=== PATIENT | male | born 1960 | race African-American/Black ===

== ENCOUNTER 2018-04-09 13:02 | Inpatient (IN) | payer MEDICARE, OTHER ==
[~2018-04-09] VITALS: Ht 185.4 cm; Wt 83.0 kg
--- NOTE | 2018-04-09 13:10 | NUR ---
PT BIB SELF C/O SOB X 1 WEEK , CP RECENTLY SIGN OUT FROM SKILLED FACILITY NITIN STRANGE, PT IS AAOX3, NOT IN RESPIRATORY DISTRESS, V/S STABLE, KEPT RESTED AND COMFORTABLE, WILL CONTINUE TO MONITOR.
--- NOTE | 2018-04-09 13:10 | NUR ---
PT LABS DRAWNED AND SENT TO LAB. AWAITING RESULTS.
[2018-04-09 13:44] LABS: BASOPHILS # (AUTO) 0.1 /CMM (0.0-0.2); HEMATOCRIT 45 % (39-51); HEMOGLOBIN 14.5 g/dL (13.5-17.5); LYMPHOCYTES # (AUTO) 2.7 /CMM (0.8-4.8); LYMPHOCYTES % (AUTO) 33.4 % (20.0-44.0); MEAN CORPUSCULAR HGB CONC 33 g/dl (31.0-36.0); MEAN CORPUSCULAR VOLUME 88 fL (80-96); MONOCYTES # (AUTO) 0.5 /CMM (0.1-1.30); MONOCYTES % (AUTO) 6.1 % (2.0-12.0); NEUTROPHILS # (AUTO) 4.8 /CMM (1.8-8.9); NEUTROPHILS % (AUTO) 58.5 % (43.0-81.0); PLATELET COUNT (AUTO) 308 /CMM (150-450); RED BLOOD CELL COUNT(AUTO) 5.08 MIL/uL (4.5-6.0); WHITE BLOOD COUNT (AUTO) 8.2 K/uL (4.3-11.0)
--- NOTE | 2018-04-09 13:45 | NUR ---
RADIOLOGY AT BEDSIDE FOR XRAY.
[2018-04-09 13:54] LABS: CALCIUM, SERUM 8.9 mg/dL (8.5-10.1); CARBON DIOXIDE 25 mmol/L (21-32); CHLORIDE 102 mmol/L (98-107); CREATININE 0.8 mg/dL (0.6-1.3); GLUCOSE 66 mg/dL (74-106); POTASSIUM 3.6 mmol/L (3.5-5.1); SODIUM SERUM 139 mmol/L (136-145); UREA NITROGEN, BLOOD 13 mg/dL (7-18)
[2018-04-09 14:09] LABS: B-TYPE NATRIURETIC PEPTIDE 279 PG/ML (0-125)
--- NOTE | 2018-04-09 14:43 | NUR ---
Called nursing sales department supervisor and requested a tele bed for this pt.
[2018-04-09] MEDS ORDERED: DIVA-78 PO (14:49)
[2018-04-09] MEDS ORDERED: QUET200T PO (14:49)
[2018-04-09] MEDS ORDERED: FAMO20TA8 PO (14:49)
[2018-04-09] MEDS ORDERED: ACET-868 PO (14:49)
[2018-04-09] MEDS ORDERED: PHEN100C4 PO ×2 (14:49→19:58)
[2018-04-09] MEDS ORDERED: LOSA50TA39 PO (14:49)
[2018-04-09] MEDS ORDERED: ALBU18HF2 IH (14:49)
[2018-04-09] MEDS ORDERED: ZOLP5TAB8 PO (14:49)
[2018-04-09] MEDS ORDERED: LORA1TAB PO (14:49)
[2018-04-09] MEDS ORDERED: NICO-676 TD (14:49)
[2018-04-09] MEDS ORDERED: ASPI-1169 PO (14:49)
[2018-04-09] MEDS ORDERED: BISA5TAB10 PO (14:49)
[2018-04-09] MEDS ORDERED: METF-440 PO (14:49)
[2018-04-09] MEDS ORDERED: DOCU-141 PO (14:49)
[2018-04-09 15:14] LABS: ALANINE AMINOTRANSFERASE 19 U/L (12-78); ALBUMIN 3.8 g/dL (3.4-5.0); ALKALINE PHOSPHATASE 112 U/L (46-116); ASPARTATE AMINOTRANSFERASE 19 U/L (15-37); BILIRUBIN,TOTAL 0.1 mg/dL (0.2-1.0); TOTAL PROTEIN, SERUM 8.4 g/dL (6.4-8.2)
--- NOTE | 2018-04-09 15:18 | NUR ---
URINE COLLECTED AND SENT TO LAB.
[2018-04-09 15:19] LABS: ALCOHOL, BLOOD 14 mg/dL (0-0); SALICYLATE 3.1 mg/dL (2.8-20.0)
[2018-04-09 15:26] LABS: APPEARANCE,URINE Clear (CLEAR); BILIRUBIN,URINE Negative (NEGATIVE); BLOOD, URINE Moderate Ery/uL (NEGATIVE); COLOR,URINE Yellow (YELLOW); KETONES,URINE 40 (NEGATIVE); LEUKOCYTE ESTERASE ,URINE Trace (NEGATIVE); NITRITE, URINE Negative (NEGATIVE); PROTEIN,URINE 30 mg/dl (NEGATIVE); UGLUCOSE Negative (NEGATIVE); UROBILINOGEN,URINE 0.2 EU/dL (0.2)
[2018-04-09 15:29] LABS: ACETAMINOPHEN < 2 ug/ml (10-30)
[2018-04-09 15:35] LABS: BACTERIA,URINE Few /HPF (None Seen); SQUAMOUS EPITHELIAL CELL,UR Few /HPF (None Seen)
--- NOTE | 2018-04-09 15:38 | NUR ---
Berto davies in [facility] - 04/09/18 at 1539 by SANDEEP Pt is assigned to [facility]#: [id number], DX: CHF, and accepting MD: Dr Ledesma
--- NOTE | 2018-04-09 15:39 | NUR ---
Pt is assigned to [facility]#: [id number], DX: CHF, and accepting MD: Dr Ledesma
--- NOTE | 2018-04-09 16:01 | NUR ---
REPORT GIVEN TO DEREK AUGUSTIN FOR GRACY.
--- NOTE | 2018-04-09 18:50 | NUR ---
MARKET RESEARCH EXECUTIVE NOTES RECEIVED FROM E.R. STAFF VIA [facility], ASSISTED TO BED, MADE COMFORTABLE, PT IS AWAKE, ALERT AND VERBALLY RESPONSIVE, WITH SITTER, NO COMPLAINT OF PAIN, NOT IN DISTRESS, ROOM SET UP ORIENTATION PROVIDED, VERBALIZED UNDERSTANDING, ASSISTED WITH MEALS, NEEDS ATTENDED, WILL ENDORSE TO ROAD CREW MEMBER RN FOR CONTINUITY OF CARE.
[2018-04-09 19:01] VITALS: BP 155/93
[2018-04-09] MEDS ORDERED: QUET300T72 PO (19:58)
[2018-04-09] MEDS ORDERED: DIVA500T4 PO (19:58)
[2018-04-09] MEDS ORDERED: HYDROCODONE/APAP 5/325MG 1 EACH TABLET PO PRN (23:00)
[2018-04-09] MEDS ORDERED: Z GUARD REMEDY 2 OZ OINT TP PRN (23:00)
[2018-04-09] MEDS ORDERED: BISACODYL (5 MG) 5 MG TABLET.DR PO PRN (23:00)
[2018-04-09] MEDS ORDERED: MAGNESIUM HYDROXIDE 30 ML UDC PO PRN (23:00)
[2018-04-09] MEDS ORDERED: ACETAMINOPHEN 325 MG TABLET PO PRN ×2 (23:00)
[2018-04-09] MEDS ORDERED: MAG HYDROX/AL HYDROX/SIMETH 30 ML UDC PO PRN (23:00)
[2018-04-09] MEDS ORDERED: ZOLPIDEM TARTRATE 5 MG TABLET PO PRN ×2 (23:00)
[2018-04-09] MEDS ORDERED: LORAZEPAM 1 MG TABLET PO PRN (23:00)
[2018-04-09] MEDS ORDERED: ONDANSETRON HCL/PF 4 MG/2 ML VIAL IVP PRN (23:00)
[2018-04-10] VITALS: BP 107/65
[2018-04-10 04:00] VITALS: BP 177/65
[2018-04-10] MEDS ORDERED: ALBUTEROL FS 2.5 MG/3 ML VIAL.NEB NEB PRN (07:35)
[2018-04-10 08:00] VITALS: BP 154/70
--- NOTE | 2018-04-10 08:00 | NUR ---
RN NOTE RECEIVED PATIENT, AWAKE, A/O X2, WITH EPISODE OF CONFUSION. PATIENT WITH FLIGHT OF IDEAS, ABLE TO MAKE NEEDS KNOWN ON ROOM AIR, BREATHING UNLABORED, NO SIGN OF DISTRESS NOTED, DENIES ANY CHEST PAIN OR ANY KIND OF PAIN. ON TELEMONITOR: SINUS RHYTHM HR AT 83 AT THIS TIME, SKIN WARM TO TOUCH, IV LINE TO LAC G [address] AND INTACT, PATENT ON FLUSHING: SL, PATIENT AMBULATORY, SITTER AT BEDSIDE, CALL LIGHT PLACE WITHIN EASY REACH, SAFETY MEASURES OBSERVED AND MAINTAINED, BED IN LOWEST AND LOCKED POSITION , WILL CONTINUE TO MONITOR PATIENT CLOSELY
[2018-04-10] MEDS ORDERED: DIVALPROEX SODIUM 500 MG TABLET.DR PO SCH (09:00)
[2018-04-10] MEDS: FAMOTIDINE (20 MG) 20 MG TABLET PO SCH (09:06)
[2018-04-10] MEDS: ASPIRIN 81 MG TAB.CHEW PO SCH (09:06)
[2018-04-10] MEDS: DOCUSATE SODIUM 100 MG CAPSULE PO SCH ×2 (09:06→17:25)
[2018-04-10] MEDS: DIVALPROEX SODIUM 500 MG TABLET.DR PO SCH ×4 (09:07→22:35)
[2018-04-10] MEDS: LOSARTAN POTASSIUM 50 MG TABLET PO SCH (09:07)
[2018-04-10] MEDS: METFORMIN 500 MG TABLET PO SCH ×2 (09:07→17:25)
[2018-04-10] MEDS: NICOTINE PATCH (14MG) 14 MG PATCH.TD24 TD SCH (09:07)
[2018-04-10 12:00] VITALS: BP 125/66
[2018-04-10 16:00] VITALS: BP 134/79
[2018-04-10 20:00] VITALS: BP 133/59
--- NOTE | 2018-04-10 20:43 | NUR ---
RN NOTES ENDORSED FOR CONTINUITY OF CARE. NO ACUTE CHANGES WITHIN THE SHIFT. ALL NURSING NEEDS ATTENDED AND MET. SAFETY MEASURES IN PLACE AT ALL TIMES. BED LOW AND LOCKED POSITION. CALL LIGHT WITHIN REACH AT ALL TIME
[2018-04-10] MEDS ORDERED: Medication Not On Formulary EA (Quetiapine Fumarate (Seroquel) 400 MG) PO SCH (22:00)
[2018-04-10] MEDS ORDERED: QUETIAPINE FUMARATE 100 MG TABLET PO SCH (22:00)
[2018-04-10] MEDS ORDERED: PHENYTOIN EXTENDED RELEASE 100 MG CAPSULE PO SCH (22:00)
[2018-04-10] MEDS: PHENYTOIN EXTENDED RELEASE 100 MG CAPSULE PO SCH (22:35)
[2018-04-10] MEDS: QUETIAPINE FUMARATE 100 MG TABLET PO SCH (22:35)
--- NOTE | 2018-04-11 01:00 | NUR ---
RN note patient refused vitals signs and cardiac monitoring. MD notified and orders received to put in stand-by. Will continue encouraging the patient and endorse to AM shift
[2018-04-11 08:00] VITALS: BP 110/66
[2018-04-11] MEDS: DIVALPROEX SODIUM 500 MG TABLET.DR PO SCH ×4 (08:32→21:27)
[2018-04-11] MEDS: NICOTINE PATCH (14MG) 14 MG PATCH.TD24 TD SCH ×2 (08:32→08:35)
[2018-04-11] MEDS: METFORMIN 500 MG TABLET PO SCH ×2 (08:32→18:09)
[2018-04-11] MEDS: LOSARTAN POTASSIUM 50 MG TABLET PO SCH (08:32)
[2018-04-11] MEDS: DOCUSATE SODIUM 100 MG CAPSULE PO SCH ×2 (08:32→18:09)
[2018-04-11] MEDS: ASPIRIN 81 MG TAB.CHEW PO SCH (08:33)
[2018-04-11] MEDS: FAMOTIDINE (20 MG) 20 MG TABLET PO SCH (08:33)
--- NOTE | 2018-04-11 10:33 | NUR ---
Educated patient on refusal of IV site and medication for potassium replacement. Patient refused regardless. Education on urine sample. Provided specimen container.
--- NOTE | 2018-04-11 11:27 | NUR ---
Social service consult requested by Dr. Ledesma for homelessness. Pt. is a 57 year old -[place] male who was admitted to [facility] for CHF and suicidal ideations. SW met with pt. bedside. Pt. has a sitter bedside. Pt. is alert and oriented x 3. Pt. appears disheveled. Pt. has his belongings bedside. Pt. is cooperative with SW. Pt's mood is congruent. Pt. states he left AMA from [facility] in [place]. Pt. states he has been homeless but not for too long. Pt states he has a psychiatric diagnosis of Bipolar, Depression and Anxiety. Pt's current medications include Depakote, Seroquel and Dilantin. Pt. is currently denying suicidal and homicidal ideations and visual/auditory hallucinations at this time. Pt. states he is interested in going to an Independent living and can afford to pay $700/ month. Pt. receives approximately $1350 per month of SSDI. DEMETRIO consulted with family caseworker Susannah regarding pt,.wanting to go to an independent living. SW and family caseworker to refer pt. to an independent living.
[2018-04-11 12:00] VITALS: BP 97/70
[2018-04-11 12:29] VITALS: BP 97/70
[2018-04-11 16:00] VITALS: BP 128/78
[2018-04-11 16:04] VITALS: BP 128/78
--- NOTE | 2018-04-11 18:32 | NUR ---
Call to consulting MD Del Valle. Left message on voicemail.
--- NOTE | 2018-04-11 20:00 | NUR ---
ROLL HAND NOTE RECEIVED PT IN BED SITTING UP. A/O X 2, NO SOB, NO DISTRESS OR DISCOMFORT NOTED. DENIES PAIN. PT REFUSED VS. AND ALSO KEPT ON REFUSING TELE MONITOR SINCE YESTERDAY, AWARE. TRIED TO REMIND PT IMPORTANCE OF HEART MONITORING, BUT PT STATES "I AM OK WITHOUT IT". SIDE RAILS UP X 2 AND CALL LIGHT WITHIN REACH. SITTER AT BED SIDE.
[2018-04-11] MEDS: PHENYTOIN EXTENDED RELEASE 100 MG CAPSULE PO SCH (21:27)
[2018-04-11] MEDS: QUETIAPINE FUMARATE 100 MG TABLET PO SCH (21:27)
--- NOTE | 2018-04-11 21:33 | NUR ---
MESS ATTENDANT CREW NOTE PT TOOK THE NIGHT TIME MEDS. BUT NOTED PT PULLED THE SL OUT FROM LAC, NO BLEEDING NOTED. SECURED THE SITE WITH 2X 2 GAUZE. PT REFUSED TO BE INSERTED NEW LINE. WILL TRY LATER.
--- NOTE | 2018-04-12 06:39 | NUR ---
MILITARY PILOT NOTE PT IN BED AWAKE, NO DISTRESS OR DISCOMFORT NOTED. DENIES PAIN. PT REMAIN REFUSING TO PUT ON TELE BOX. ALSO REFUSED IV INSERTION, MD AWARE. SIDE RAILS UP X 3 AND CALL LIGHT WITHIN REACH. WILL ENDORSE TO DAY SHIFT NURSE FOR CONTINUE TO CARE.
[2018-04-12] MEDS: FAMOTIDINE (20 MG) 20 MG TABLET PO SCH (07:30)
--- NOTE | 2018-04-12 07:30 | NUR ---
RN NOTES RECEIVED PATIENT, AWAKE, A/O X2, WITH EPISODE OF CONFUSION. PATIENT WITH FLIGHT OF IDEAS, ABLE TO MAKE NEEDS KNOWN ON ROOM AIR, BREATHING UNLABORED, NO SIGN OF DISTRESS NOTED, DENIES ANY CHEST PAIN OR ANY KIND OF PAIN. PATIENT BEING RESISTIVE- REFUSED VITAL SIGNS TO BE TAKEN AND MONITOR TO BE IN PLACE. PATIENT AMBULATORY, SITTER AT BEDSIDE, CALL LIGHT PLACE WITHIN EASY REACH, SAFETY MEASURES OBSERVED AND MAINTAINED, BED IN LOWEST AND LOCKED POSITION , WILL CONTINUE TO MONITOR PATIENT CLOSELY
[2018-04-12 08:00] VITALS: BP 110/66
--- NOTE | 2018-04-12 08:00 | NUR ---
RN NOTES PATIENT REFUSED TO EAT FOOD SERVE FOR BREAKFAST AND WAS ASKING FOR 2 SAUSAGE AND 3 HARD BOILED EGGS WHICH ARE NOT ALLOWED FOR THE ORDERED DIET. EXPLAINED SITUATION TO PATIENT WHO STILL REFUSES TO EAT FOOD. WILL CLARIFY WITH MD ON ROUND.
[2018-04-12] MEDS: METFORMIN 500 MG TABLET PO SCH ×2 (09:00→16:55)
[2018-04-12] MEDS: DIVALPROEX SODIUM 500 MG TABLET.DR PO SCH ×4 (09:00→20:50)
[2018-04-12] MEDS: NICOTINE PATCH (14MG) 14 MG PATCH.TD24 TD SCH (09:00)
[2018-04-12] MEDS: ASPIRIN 81 MG TAB.CHEW PO SCH (09:00)
[2018-04-12] MEDS: DOCUSATE SODIUM 100 MG CAPSULE PO SCH ×4 (09:00→17:00)
[2018-04-12] MEDS: LOSARTAN POTASSIUM 50 MG TABLET PO SCH (09:00)
--- NOTE | 2018-04-12 09:00 | NUR ---
RN NOTES PATIENT REFUSE TO TAKE MEDICATIONS. "I WILL TAKE MY MEDICATION AFTER I EAT" INFORMED PATIENT THAT HE REFUSED THE FOOD SERVE TO HIM FOR BREAKFAST BUT CLAIMED THAT HE DID NOT. PATIENT WAS THEN OFFERED THE SAME TRAY BUT VERBALIZED " I WILL TAKE MY MEDICATIONS AFTER I EAT MY FOOD FOR LUNCH". RISK AND BENEFITS EXPLAINED TO THE PATIENT WHO WAS ON PASSIVELY LISTENING.
--- NOTE | 2018-04-12 09:30 | NUR ---
RN NOTES RE OFFERED MEDICATION. STILL REFUSES
[2018-04-12 12:00] VITALS: BP 97/70
[2018-04-12 16:00] VITALS: BP 128/78
[2018-04-12 20:00] VITALS: BP 107/69
[2018-04-12] MEDS: QUETIAPINE FUMARATE 100 MG TABLET PO SCH (20:50)
[2018-04-12] MEDS: PHENYTOIN EXTENDED RELEASE 100 MG CAPSULE PO SCH (20:51)
[2018-04-13 04:00] VITALS: BP_SYST 118; BP_SYST 156; BP_DIAS 74; BP_DIAS 78
--- NOTE | 2018-04-13 05:50 | NUR ---
pt alert, oriented, denies any pain or discomfort, sleeping well overnight, with constant observer.vss,afebrile, remians in bed, uses urinal , no bm, vss,afebrile, no significant changes overnight, will continue to monitor.
[2018-04-13] MEDS: FAMOTIDINE (20 MG) 20 MG TABLET PO SCH (07:30)
--- NOTE | 2018-04-13 07:30 | NUR ---
RN OPENING NOTES PT RECEIVED IN BED AT LOWEST AND LOCKED POSITION WITH SIDE RAILS UP X2, A/O X4, BREATHING EVEN AND UNLABORED ON RA, NO S/S OF PAIN OR DISTRESS NOTED, IV PATENT AND INTACT, SAFETY PRECAUTIONS IN PLACE, CALL LIGHT WITHIN REACH, WILL MONITOR ACCORDINGLY
--- NOTE | 2018-04-13 08:18 | NUR ---
RN NOTES PATIENT REFUSED TO EAT FOOD THAT WAS SERVED FOR BREAKFAST AND WAS ASKING FOR SAUSAGE AND HARD BOILED EGGS WHICH HE IS NOT ALLOWED DUE TO HIS CARDIAC DIET. EXPLAINED SITUATION TO PATIENT WHO STILL REFUSES TO EAT FOOD. HE REFUSED AM MEDS WELL BECAUSE OF THIS.
[2018-04-13] MEDS: DOCUSATE SODIUM 100 MG CAPSULE PO SCH ×2 (08:57→16:23)
[2018-04-13] MEDS: ASPIRIN 81 MG TAB.CHEW PO SCH (08:57)
[2018-04-13] MEDS: LOSARTAN POTASSIUM 50 MG TABLET PO SCH (08:57)
[2018-04-13] MEDS: METFORMIN 500 MG TABLET PO SCH ×2 (08:58→16:23)
[2018-04-13] MEDS: NICOTINE PATCH (14MG) 14 MG PATCH.TD24 TD SCH (08:58)
[2018-04-13] MEDS: DIVALPROEX SODIUM 500 MG TABLET.DR PO SCH ×3 (08:58→16:23)
[2018-04-13 09:00] VITALS: BP 108/70
[2018-04-13 12:59] VITALS: BP 96/68
[2018-04-13 17:18] VITALS: BP 96/68
--- NOTE | 2018-04-13 18:21 | NUR ---
DISCHARGE NOTES PT IS BEING D/C AT THIS TIME [facility] AT [address] [place] [address] IN MEDICALLY STABLE CONDITION VIA TAXI. IV AND ID BAND REMOVED. D/C PAPERWORK DISCCUSSED AND SIGNED BY PT. BELONGING LIST SIGNED BY PT, ALL BELONGINGS WERE TAKEN WELL. SKIN WAS DRY AND INTACT WITH NO WOUNDS NOTED. ALL NEEDS WERE ATTENDED TO DURING THEIR STAY. REPORT GIVEN TO DEREK NG. ALL NEEDS WERE ATTENDED TO, [facility] PT OUT, WITH ETA OF 30 MIN
== END 2018-04-13 18:25 | disposition home or self-care (01) | DRG 101 ==
LOC: ER 13:05 → TELE1 15:44 → MEDSG1 04-12 15:40
PROVIDERS: ADMIT Internal Medicine; ATTEND Nurse Practitioner Acute Care
DX: G40.909 Epilepsy, unspecified, not intractable, without status epilepticus (principal); F23 Brief psychotic disorder; R45.851 Suicidal ideations; I25.10 Atherosclerotic heart disease of native coronary artery without angina pectoris; E78.5 Hyperlipidemia, unspecified; F43.10 Post-traumatic stress disorder, unspecified; F17.210 Nicotine dependence, cigarettes, uncomplicated; I11.0 Hypertensive heart disease with heart failure; I50.9 Heart failure, unspecified; J44.9 Chronic obstructive pulmonary disease, unspecified; Z59.0 Homelessness; Z79.84 Long term (current) use of oral hypoglycemic drugs; E11.9 Type 2 diabetes mellitus without complications; F25.0 Schizoaffective disorder, bipolar type; Z91.19 Patient's noncompliance with other medical treatment and regimen; J06.9 Acute upper respiratory infection, unspecified
CPT/HCPCS: 36415; 71045-TC; 80048-TC; 80076-TC; 80305; 81000-TC; 83880; 84484-TC; 85025-TC; 85730-TC; 87081-TC; 93307-TC; G0378; G0480

== ENCOUNTER 2018-11-03 00:24 | Emergency (ER) | payer MEDICARE, OTHER ==
[~2018-11-03] VITALS: Ht 190.5 cm; Wt 88.9 kg
[~2018-11-03 00:24] MED LIST: ACET-868 PO; ALBU18HF2 IH; ASPI-1169 PO; BISA5TAB10 PO; DIVA-78 PO; DIVA500T4 PO; DOCU-141 PO; FAMO20TA8 PO; LORA1TAB PO; LOSA50TA39 PO; METF-440 PO; NICO-676 TD; PHEN100C4 PO; QUET200T PO; QUET300T72 PO; ZOLP5TAB8 PO
--- NOTE | 2018-11-03 01:20 | NUR ---
BIBSELF C/O SUICIDE/HOMICIDAL IDEATION AND AUDITORY HALLUCINATIONS. PT DENIES PLAN AT THIS TIME. PT APPEARS PARANOID. VITAL SIGNS STABLE. ABLE TO AMBULATE WITH STEADY GAIT. PLACED IN GOWN, SUICIDE PRECAUTIONS INITIATED. SITTER AT BEDSIDE. WILL CONTINUE TO MONITOR
--- NOTE | 2018-11-03 01:40 | NUR ---
MD AT BEDSIDE FOR EVALUATION
[2018-11-03 01:53] LABS: APPEARANCE,URINE Clear (CLEAR); BILIRUBIN,URINE Negative (NEGATIVE); BLOOD, URINE Trace-lysed Ery/uL (NEGATIVE); COLOR,URINE Yellow (YELLOW); KETONES,URINE Trace (NEGATIVE); LEUKOCYTE ESTERASE ,URINE Small (NEGATIVE); NITRITE, URINE Negative (NEGATIVE); PROTEIN,URINE Negative (NEGATIVE); UGLUCOSE Negative (NEGATIVE); UROBILINOGEN,URINE 0.2 EU/dL (0.2)
--- NOTE | 2018-11-03 01:54 | NUR ---
CORPORATE TECHNICAL RECRUITER AT BEDSIDE FOR EVALUATION
[2018-11-03 01:57] LABS: BASOPHILS # (AUTO) 0.1 /CMM (0.0-0.2); BASOPHILS % (AUTO) 0.7 % (0.0-2.0); EOSINOPHILS % (AUTO) 0.5 % (0.0-6.0); HEMATOCRIT 43 % (39-51); HEMOGLOBIN 14.1 g/dL (13.5-17.5); LYMPHOCYTES # (AUTO) 1.5 /CMM (0.8-4.8); LYMPHOCYTES % (AUTO) 17.5 % (20.0-44.0); MEAN CORPUSCULAR HGB CONC 33 g/dl (31.0-36.0); MEAN CORPUSCULAR VOLUME 86 fL (80-96); MONOCYTES # (AUTO) 0.5 /CMM (0.1-1.30); MONOCYTES % (AUTO) 6.2 % (2.0-12.0); NEUTROPHILS # (AUTO) 6.4 /CMM (1.8-8.9); NEUTROPHILS % (AUTO) 75.1 % (43.0-81.0); PLATELET COUNT (AUTO) 315 /CMM (150-450); RED BLOOD CELL COUNT(AUTO) 4.99 MIL/uL (4.5-6.0); WHITE BLOOD COUNT (AUTO) 8.5 K/uL (4.3-11.0)
[2018-11-03 02:12] LABS: BACTERIA,URINE Few /HPF (None Seen); SQUAMOUS EPITHELIAL CELL,UR Rare /HPF (None Seen); WBC,URINE 21-50 /HPF (0-3)
[2018-11-03 02:12] LABS: CALCIUM, SERUM 9.1 mg/dL (8.5-10.1); CREATININE 0.9 mg/dL (0.6-1.3); POTASSIUM 3.3 mmol/L (3.5-5.1)
[2018-11-03 02:16] LABS: ALBUMIN 3.7 g/dL (3.4-5.0); BILIRUBIN,DIRECT 0.1 mg/dL (0.0-0.2); BILIRUBIN,TOTAL 0.1 mg/dL (0.2-1.0); SALICYLATE 5.4 mg/dL (2.8-20.0); TOTAL PROTEIN, SERUM 8.6 g/dL (6.4-8.2)
[2018-11-03 02:20] LABS: B-TYPE NATRIURETIC PEPTIDE 164 PG/ML (0-125)
[2018-11-03] MEDS ORDERED: SULFAMETH/TRIMETH 800/160 MG 1 UDTAB TABLET PO ONE (03:30)
[2018-11-03] MEDS ORDERED: POTASSIUM CHLORIDE 20 MEQ TAB.PRT.SR PO ONE ×2 (03:30→04:16)
--- NOTE | 2018-11-03 03:34 | NUR ---
PT RESTING COMFORTABLY IN BED. SITTER AT BEDSIDE. WILL CONTINUE TO MONITOR
[2018-11-03] MEDS ORDERED: SULFAMETH/TRIMETH 800/160 MG 1 UDTAB TABLET ONE (04:16)
--- NOTE | 2018-11-03 04:58 | NUR ---
ART,SKIN TANNER AT BEDSIDE FOR EVALUATION
--- NOTE | 2018-11-03 06:03 | NUR ---
PT AWAKE IN BED. APPEARS RESTLESS. HYPERTENSION NOTED. ER MD AWARE. SITTER AT BEDSIDE
[2018-11-03] MEDS ORDERED: CLONIDINE HCL 0.1 MG TABLET ONE ×2 (06:08→08:17)
[2018-11-03] MEDS ORDERED: LORAZEPAM 1 MG TABLET ONE ×2 (06:08→08:16)
[2018-11-03] MEDS ORDERED: CLONIDINE HCL 0.1 MG TABLET PO ONE ×2 (06:30→08:30)
[2018-11-03] MEDS ORDERED: LORAZEPAM 1 MG TABLET PO ONE ×2 (06:30→08:30)
--- NOTE | 2018-11-03 08:08 | NUR ---
BP 218/109, P 119, MADE MD AWARE.
--- NOTE | 2018-11-03 11:39 | NUR ---
Social service consult requested by ER Charge Nurse for suicidal ideation. Pt is a 58 year old male who was admitted to [facility] ER for suicidal ideation. SW met with pt at bedside. Pt was laying down in his bed. Pt looks disheveled. Pt is ambulatory and states that he is able to walk independently. Pt was agitated and presented with disorganized thoughts. Pt is oriented x 3. Pt states that he is currently homeless. PT states that he has lived in several different psychiatric and convalescent facilities but could not provide specific information. Pt states that he does not use alcohol or drugs, �except I did use last night because they entered through the ground and it went up my feet.� Pt unable to provide further specific information on a history of drug or alcohol use. Pt state that has a history of psychiatric diagnoses, including: paranoid schizophrenia, depression, homicidal and suicidal ideation, visual and auditory hallucinations. Patient presents as delusional stating, �I was banging my head because my shadow was turning blue and it was turning on me� my shadow is after me.� Pt states he is currently experiencing suicidal ideation. Pt was receptive to voluntarily admitting himself to [facility] at [id number] [place] [id number]; [phone]. DEMETRIO spoke with Staci, Legal Nurse Consultant, and she states that they have already received the clinicals packet for patient and they are waiting to receive information regarding pt�s last seizure episode. DEMETRIO informed ER Charge Nurse and information will be provided.
[2018-11-03] MEDS ORDERED: DIVALPROEX SODIUM 500 MG TABLET.DR PO ONE ×2 (12:30→13:13)
--- NOTE | 2018-11-03 13:45 | NUR ---
CALLED FOR BLS TRANSPORT TO [facility], 1500 ETA
[2018-11-03] MEDS ORDERED: METOPROLOL SUCCINATE 50 MG TAB.SR.24H PO SCH (14:00)
[2018-11-03] MEDS ORDERED: LABETALOL HCL IV 100MG VIAL IV ONE (14:00)
[2018-11-03] MEDS ORDERED: LABETALOL HCL IV 100MG VIAL ONE (14:08)
[2018-11-03] MEDS ORDERED: METOPROLOL TARTRATE 50 MG TABLET ONE (15:24)
[2018-11-03 15:30] VITALS: BP 137/94
--- NOTE | 2018-11-03 15:37 | NUR ---
REPORT GIVEN TO RICH DIE ASSEMBLER. Patient discharged [facility] in stable condition. Written and verbal after care instructions given. Patient verbalizes understanding of instruction. ALL BELONGINGS GIVEN TO PATIENT.
[2018-11-03] MEDS ORDERED: METOPROLOL TARTRATE 25 MG TABLET PO ONE (16:00)
== END 2018-11-03 15:40 ==
LOC: ER 00:35
DX: R45.851 Suicidal ideations (principal); E87.6 Hypokalemia; N39.0 Urinary tract infection, site not specified; F15.10 Other stimulant abuse, uncomplicated; I11.0 Hypertensive heart disease with heart failure; I50.9 Heart failure, unspecified; J44.9 Chronic obstructive pulmonary disease, unspecified; E11.9 Type 2 diabetes mellitus without complications; I25.10 Atherosclerotic heart disease of native coronary artery without angina pectoris; F31.9 Bipolar disorder, unspecified; F20.0 Paranoid schizophrenia; F14.10 Cocaine abuse, uncomplicated; F17.200 Nicotine dependence, unspecified, uncomplicated; F10.10 Alcohol abuse, uncomplicated; G40.909 Epilepsy, unspecified, not intractable, without status epilepticus; Z98.890 Other specified postprocedural states; Z59.0 Homelessness; Z79.82 Long term (current) use of aspirin; Z91.018 Allergy to other foods; Z88.9 Allergy status to unspecified drugs, medicaments and biological substances; Z88.8 Allergy status to other drugs, medicaments and biological substances; Z88.5 Allergy status to narcotic agent; Z91.048 Other nonmedicinal substance allergy status
CPT/HCPCS: 36415; 71045; 80048; 80076; 80164; 80185; 80305; 80329; 80307; 81001; 83880; 84484; 85025; 87086; 93005; 96374; 99285; G0480; J3490; 81000-TC

== ENCOUNTER 2019-02-18 00:29 | Emergency (ER) | payer MEDICARE, OTHER ==
[~2019-02-18] VITALS: Ht 188 cm; Wt 74.8 kg
[2019-02-18 02:37] VITALS: BP 149/84
--- NOTE | 2019-02-18 03:52 | NUR ---
Patient discharged to home in stable condition. Written and verbal after care instructions given. Patient verbalizes understanding of instruction. Pt ambulatory with a steady gait
== END 2019-02-18 03:53 | disposition home or self-care (01) ==
LOC: ER 00:32
DX: R05 Cough (principal); G40.909 Epilepsy, unspecified, not intractable, without status epilepticus; I10 Essential (primary) hypertension; E11.9 Type 2 diabetes mellitus without complications; F20.9 Schizophrenia, unspecified; F10.10 Alcohol abuse, uncomplicated; F17.200 Nicotine dependence, unspecified, uncomplicated; F14.10 Cocaine abuse, uncomplicated; Y90.9 Presence of alcohol in blood, level not specified; Z59.0 Homelessness; Z98.890 Other specified postprocedural states; Z79.899 Other long term (current) drug therapy; Z79.82 Long term (current) use of aspirin; Z88.5 Allergy status to narcotic agent; Z91.018 Allergy to other foods; Z88.4 Allergy status to anesthetic agent; Z88.8 Allergy status to other drugs, medicaments and biological substances; Z91.048 Other nonmedicinal substance allergy status
CPT/HCPCS: 71045-TC

== ENCOUNTER 2019-06-03 22:01 | Emergency (ER) | payer MEDICARE ==
[~2019-06-03] VITALS: Ht 188 cm; Wt 77.1 kg
--- NOTE | 2019-06-03 22:10 | NUR ---
BIBS. RAMBLING INCOHERENTLY. VERBALIZES SI & HI. NO SPECIFIC PLANS. JITTERY, PT TO BED 12, S/I PRECAUTION STARTED, BELONGINGS KEPT IN LOCKER FOR SAFETY, SITTER AT BEDSIDE. PENDING MD MONTERO
[2019-06-03 23:13] LABS: APPEARANCE,URINE Clear (CLEAR); BILIRUBIN,URINE SMALL (NEGATIVE); BLOOD, URINE Negative Ery/uL (NEGATIVE); COLOR,URINE Yellow (YELLOW); KETONES,URINE Negative (NEGATIVE); LEUKOCYTE ESTERASE ,URINE Negative (NEGATIVE); NITRITE, URINE Negative (NEGATIVE); PH,URINE 5.5 (5.0-8.0); PROTEIN,URINE 30 mg/dl (NEGATIVE); UGLUCOSE Negative (NEGATIVE); UROBILINOGEN,URINE 0.2 EU/dL (0.2)
[2019-06-03 23:42] LABS: BASOPHILS # (AUTO) 0.1 /CMM (0.0-0.2); BASOPHILS % (AUTO) 0.9 % (0.0-2.0); EOSINOPHILS % (AUTO) 2.3 % (0.0-6.0); HEMATOCRIT 42 % (39-51); HEMOGLOBIN 13.5 g/dL (13.5-17.5); LYMPHOCYTES # (AUTO) 2.9 /CMM (0.8-4.8); LYMPHOCYTES % (AUTO) 34.9 % (20.0-44.0); MEAN CORPUSCULAR HGB CONC 32 g/dl (31.0-36.0); MEAN CORPUSCULAR VOLUME 86 fL (80-96); MONOCYTES # (AUTO) 0.4 /CMM (0.1-1.30); MONOCYTES % (AUTO) 5.3 % (2.0-12.0); NEUTROPHILS # (AUTO) 4.6 /CMM (1.8-8.9); NEUTROPHILS % (AUTO) 56.6 % (43.0-81.0); PLATELET COUNT (AUTO) 281 /CMM (150-450); RED BLOOD CELL COUNT(AUTO) 4.91 MIL/uL (4.5-6.0); WHITE BLOOD COUNT (AUTO) 8.2 K/uL (4.3-11.0)
[2019-06-03 23:49] LABS: CALCIUM, SERUM 9.3 mg/dL (8.5-10.1); CARBON DIOXIDE 26 mmol/L (21-32); CHLORIDE 106 mmol/L (98-107); GLUCOSE 125 mg/dL (74-106); POTASSIUM 3.8 mmol/L (3.5-5.1); SODIUM SERUM 141 mmol/L (136-145); UREA NITROGEN, BLOOD 15 mg/dL (7-18)
[2019-06-03 23:55] LABS: ALANINE AMINOTRANSFERASE 23 U/L (12-78); ALBUMIN 3.5 g/dL (3.4-5.0); ALCOHOL, BLOOD < 3 mg/dL (0-0); ALKALINE PHOSPHATASE 105 U/L (46-116); ASPARTATE AMINOTRANSFERASE 16 U/L (15-37); BILIRUBIN,TOTAL 0.1 mg/dL (0.2-1.0); SALICYLATE 3.7 mg/dL (2.8-20.0); TOTAL PROTEIN, SERUM 7.7 g/dL (6.4-8.2)
[2019-06-03 23:56] LABS: BACTERIA,URINE Few /HPF (None Seen); RBC,URINE 0-2 /HPF (0-2); SQUAMOUS EPITHELIAL CELL,UR Few /HPF (None Seen)
[2019-06-03 23:59] LABS: ACETAMINOPHEN 0 ug/ml (10-30)
--- NOTE | 2019-06-04 | NUR ---
PT REFUSING CT STUDIES, ER AWARE
--- NOTE | 2019-06-04 00:30 | NUR ---
CLINICAL INFORMATION FAXED TO [facility]
--- NOTE | 2019-06-04 02:10 | NUR ---
PER JOHN, [facility], NO MEDICARE DAYS AVAILABLE.
--- NOTE | 2019-06-04 02:25 | NUR ---
PER ADMITTING, PT DOES NOT QUALIFY FOR PRESUMPTIVE [facility]. CALLED [facility] FOR ASSISTANCE ON PLACEMENT, RECOMMENDED TO TRY [facility] OR [facility], WILL FOLLOW UP
--- NOTE | 2019-06-04 02:30 | NUR ---
Patient is resting comfortably in bed with eyes closed. Easily aroused. VSS
--- NOTE | 2019-06-04 02:49 | NUR ---
[facility]OKE WITH [facility]. UNABLE TO ACCEPT PATIENT WITHOUT MEDICARE DAYS
--- NOTE | 2019-06-04 03:00 | NUR ---
SPOKE WITH TRINA FROM [facility] FOR POSSIBLE PLACEMENT. CLINICAL INFORMATION FAXED TO FACILITY
--- NOTE | 2019-06-04 05:01 | NUR ---
SPOKE WITH TRINA FROM [facility]. CLINICAL PACKET STILL BEING REVIEWED. WILL CALL BACK WITH ANY UPDATE
--- NOTE | 2019-06-04 05:20 | NUR ---
SPOKE WITH TRINA FROM [facility]. PT ACCEPTED TO [facility]. ACCEPTING MD DR. KENNEY. PENDING ROOM ASSIGNMENT PER TRINA, FAX [facility]/INCIDENT NUMBER
--- NOTE | 2019-06-04 05:29 | NUR ---
CALLED [facility] FOR INCIDENT NUMBER, INFORMED UNABLE TO ACCEPT PATIENT.
--- NOTE | 2019-06-04 07:15 | NUR ---
Patient given written and verbal discharge instructions. Patient verbalizes understanding of instructions. Patient is ambulatory with steady gait. Refuses offer of jail placement. Patient given list of available shelters in surrounding area.
--- NOTE | 2019-06-04 08:55 | NUR ---
Patient seen by [facility]. patient a/ox4, ambulatory with steady gait. Patient given written and verbal discharge instructions. Patient verbalizes understanding of instructions. Patient is ambulatory with steady gait. Refuses offer of retirement placement. Patient given list of available shelters in surrounding area. Refused to sign homeless waiver.
[2019-06-04 09:08] VITALS: BP 134/79
== END 2019-06-04 09:08 | disposition home or self-care (01) ==
LOC: ER 22:02
DX: R45.850 Homicidal ideations (principal); R45.851 Suicidal ideations; F29 Unspecified psychosis not due to a substance or known physiological condition; G40.909 Epilepsy, unspecified, not intractable, without status epilepticus; I10 Essential (primary) hypertension; E11.9 Type 2 diabetes mellitus without complications; Z98.890 Other specified postprocedural states; Z91.018 Allergy to other foods; Z88.4 Allergy status to anesthetic agent; Z88.8 Allergy status to other drugs, medicaments and biological substances; Z88.5 Allergy status to narcotic agent; Z91.048 Other nonmedicinal substance allergy status; Z59.0 Homelessness; Z79.82 Long term (current) use of aspirin; Z79.899 Other long term (current) drug therapy
CPT/HCPCS: 36415; 80048; 80076; 80305; 80307; 80329; 81001; 85025; 99285; G0480; 81000-TC

== ENCOUNTER 2021-05-20 06:08 | Emergency (ER) | payer MEDICARE, OTHER ==
[~2021-05-20] VITALS: Ht 185.4 cm; Wt 74.8 kg
--- NOTE | 2021-05-20 06:48 | NUR ---
BIBS C/O S/I ADMITS TO "DRINKING 4 BOTTLES OF ALCOHOL" SEEKING VOLUNTARY ADMISSION TO [facility]. PATIENT ALERT AND ORIENTED X2. AMBULATORY WITH NON LABORED BREATHING. PLACED IN BED 18 BELONGINGS COLLECTED.
--- NOTE | 2021-05-20 06:49 | NUR ---
URINE COLLECTED AND SENT TO LAB
--- NOTE | 2021-05-20 07:05 | NUR ---
LAB AT BEDSIDE
--- NOTE | 2021-05-20 07:17 | NUR ---
COVID ANTIGEN SWAB COLLECTED AND SENT TO LAB
[2021-05-20 07:55] LABS: CALCIUM, SERUM 8.8 mg/dL (8.5-10.1); CREATININE 0.9 mg/dL (0.6-1.3); POTASSIUM 3.7 mmol/L (3.5-5.1)
[2021-05-20 07:58] LABS: ALBUMIN 3.8 g/dL (3.4-5.0); BILIRUBIN,DIRECT 0.1 mg/dL (0.0-0.2); BILIRUBIN,TOTAL 0.1 mg/dL (0.2-1.0); TOTAL PROTEIN, SERUM 9.6 g/dL (6.4-8.2)
[2021-05-20 08:04] LABS: BASOPHILS % (AUTO) 0.5 % (0.0-2.0); EOSINOPHILS % (AUTO) 0.2 % (0.0-6.0); HEMATOCRIT 43 % (39-51); HEMOGLOBIN 14.3 g/dL (13.5-17.5); LYMPHOCYTES # (AUTO) 1.5 K/uL (0.8-4.8); LYMPHOCYTES % (AUTO) 23.8 % (20.0-44.0); MEAN CORPUSCULAR HGB CONC 33 g/dl (31.0-36.0); MEAN CORPUSCULAR VOLUME 84 fL (80-96); MONOCYTES # (AUTO) 0.3 K/uL (0.1-1.30); NEUTROPHILS # (AUTO) 4.5 K/uL (1.8-8.9); NEUTROPHILS % (AUTO) 70.5 % (43.0-81.0); PLATELET COUNT (AUTO) 242 K/uL (150-450); RED BLOOD CELL COUNT(AUTO) 5.16 MIL/uL (4.5-6.0); WHITE BLOOD COUNT (AUTO) 6.3 K/uL (4.3-11.0)
[2021-05-20 08:05] LABS: BILIRUBIN,URINE NEGATIVE (NEGATIVE); COLOR,URINE YELLOW (YELLOW); LEUKOCYTE ESTERASE ,URINE NEGATIVE (NEGATIVE); NITRITE, URINE NEGATIVE (NEGATIVE); PH,URINE 5.5 (5.0-8.0); PROTEIN,URINE NEGATIVE (NEGATIVE); UGLUCOSE NEGATIVE (NEGATIVE); UROBILINOGEN,URINE 0.2 EU/dL (0.2)
--- NOTE | 2021-05-20 08:37 | NUR ---
FAXED CLINICALS TO [facility].
[2021-05-20 08:40] LABS: BACTERIA,URINE Rare /HPF (None Seen); SQUAMOUS EPITHELIAL CELL,UR None Seen /HPF (None Seen)
[2021-05-20 08:41] LABS: URIC ACID CRYSTALS,URINE Few /HPF (None Seen)
--- NOTE | 2021-05-20 08:52 | NUR ---
CALLED [facility] TO MAKE SURE THEY HAVE THE PACKET.
--- NOTE | 2021-05-20 10:01 | NUR ---
SW AT BEDSIDE
--- NOTE | 2021-05-20 10:22 | NUR ---
Pt. stated he is no longer suicidal and wants to leave. SW provided pt. with homeless resources, pt. accepted.
--- NOTE | 2021-05-20 10:25 | NUR ---
PT STATED THAT E WAS NO LONGER SUICIDAL. SW WORKER WAS CALLED AND DOCTOR SPOKE TO PT. PT WAS GIVEN HIS BELONGING AND WAS DISCHARGED IN STABLE CONDITION.
[2021-05-20 10:39] VITALS: BP 141/95
== END 2021-05-20 10:40 | disposition home or self-care (01) ==
LOC: ER 06:08
DX: F10.129 Alcohol abuse with intoxication, unspecified (principal); Y90.5 Blood alcohol level of 100-119 mg/100 ml; R45.851 Suicidal ideations; F17.200 Nicotine dependence, unspecified, uncomplicated; G40.909 Epilepsy, unspecified, not intractable, without status epilepticus; I10 Essential (primary) hypertension; E11.9 Type 2 diabetes mellitus without complications; Z79.84 Long term (current) use of oral hypoglycemic drugs; Z79.899 Other long term (current) drug therapy; Z59.00 Homelessness unspecified; Z88.8 Allergy status to other drugs, medicaments and biological substances; Z91.018 Allergy to other foods; F32.A Depression, unspecified; Z20.822 Contact with and (suspected) exposure to COVID-19; Z53.20 Procedure and treatment not carried out because of patient's decision for unspecified reasons
CPT/HCPCS: 36415; 80048-TC; 80076-TC; 81001; 85025-TC; C9803; G0480